=== PATIENT | male | born 1985 ===

== ENCOUNTER 2016-10-04 23:53 | Emergency (ER) | payer SELFPAY ==
[2016-10-05 00:21] VITALS: BP 130/76; PULSE 64; RESP 18; TEMP 98.3; O2SAT 99
--- NOTE | 2016-10-05 00:29 | ED PDOC ---
HPI: Back Time Seen by Provider: 10/05/16 00:28 Chief Complaint (Nursing): Back Pain Chief Complaint (Provider): back pain History Per: Patient Additional Complaint(s): 31-year-old male with no past medical history presents to emergency Department with pain to lower back that started 2 days ago. Patient denies injury or trauma. No fever or chills. No dysuria or hematuria. No medication taken for pain relief. 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 Past Medical History Reviewed: Historical Data, Nursing Documentation, Vital Signs Vital Signs: Last Vital Signs Temp 98.3 F 10/05/16 00:19 Pulse 64 10/05/16 00:19 Resp 18 10/05/16 00:19 BP 130/76 10/05/16 00:19 Pulse Ox 99 10/05/16 00:19 - Medical History PMH: No Chronic Diseases - Surgical History Surgical History: No Surg Hx - Family History Family History: States: No Known Family Hx - Living Arrangements Living Arrangements: With Family - Social History Current smoker - smoking cessation education provided: No Alcohol: None Drugs: Denies - Home Medications Home Medications: Ambulatory Orders Medication Instructions Recorded Cyclobenzaprine [Cyclobenzaprine 10 mg PO TID PRN #15 tab 10/05/16 HCl] Ibuprofen [Motrin] 600 mg PO Q6 PRN #15 tab 10/05/16 - Allergies Allergies/Adverse Reactions: Allergies Allergy/AdvReac Type Severity Reaction Status Date / Time No Known Allergies Allergy Verified 10/05/16 00:19 Review of Systems ROS Statement: Except As Marked, All Systems Reviewed And Found Negative Constitutional: Negative for: Fever Cardiovascular: Negative for: Chest Pain Respiratory: Negative for: Cough Gastrointestinal: Negative for: Nausea, Vomiting, Abdominal Pain Genitourinary Male: Negative for: Dysuria, Frequency, Incontinence, Hematuria Musculoskeletal: Positive for: Back Pain Neurological: Negative for: Weakness, Numbness, Incoordination, Change in Speech , Altered Mental Status, Headache, Dizziness Physical Exam - Reviewed Nursing Documentation Reviewed: Yes Vital Signs Reviewed: Yes - Physical Exam Appears: Positive for: Well, Non-toxic, No Acute Distress Skin: Negative for: Rash Eye Exam: Positive for: Normal appearance, EOMI, PERRL Cardiovascular/Chest: Positive for: Regular Rate, Rhythm Respiratory: Positive for: Normal Breath Sounds. Negative for: Respiratory Distress Gastrointestinal/Abdominal: Positive for: Normal Exam, Soft. Negative for: Tenderness Back: Positive for: L CVA Tenderness, R CVA Tenderness, Vertebral Tenderness ( lumbar region), Other (negative bilateral straight leg raise) Extremity: Positive for: Normal ROM. Negative for: Pedal Edema Neurologic/Psych: Positive for: Alert, Oriented - Laboratory Results Result Diagrams: 10/05/16 01:54 10/05/16 01:54 Urine dip results: Positive for: Blood (moderate). Negative for: Leukocyte Esterase, Nitrate, Ketones, Glucose, Bilirubin, Protein - ECG O2 Sat by Pulse Oximetry: 99 Pulse Ox Interpretation: Normal - Other Rad CT abd and pelvis without contrast X-Ray: Read By Radiologist X-Ray Interpretation: no acute finding, see below Medical Decision Making Medical Decision Makin31 year old with back pain Urine dip shows moderate blood, will order CT to rule out renal pathology Plan: CBC CMP IVF IV toradol CT abd and pelvis without contrast CT: IMPRESSION: - No evidence of significant acute process on this unenhanced exam. There is no evidence of nephrolithiasis or obstructive uropathy. - An abnormal, bandlike area of soft tissue is seen in the right ischiorectal fossa laterally, which appears to connect with the edwige of the penis on the right. This is of uncertain etiology, but could represent some type of congenital anomaly. It does not have a CT appearance to suggest an abscess or other acute inflammatory process. Recommend clinical correlation. Nonemergent pelvic MRI may be helpful for further evaluation. Patient states pain is resolved after toradol was given. He states he feels much better. CT is negative for acute finding. Patient aware of incidental finding. All questions answered. Will d/c with rx motrin and flexeril. Patient was referred to clinic for follow up. Disposition - Clinical Impression Clinical Impression: Back strain - Patient ED Disposition Is Patient to be Admitted: No Counseled Patient/Family Regarding: Studies Performed, Diagnosis, Need For Followup, Rx Given - Disposition Referrals: [facility] [Outside] Disposition: Routine/Home Disposition Time: 04:21 Condition: STABLE Additional Instructions: Take rx meds as directed as needed for pain. Avoid heavy lifting. Follow up in 2-3 days with clinic. Prescriptions: Cyclobenzaprine [Cyclobenzaprine HCl] 10 mg PO TID PRN #15 tab PRN Reason: Muscle Pain Ibuprofen [Motrin] 600 mg PO Q6 PRN #15 tab PRN Reason: Pain, Moderate (4-7) Instructions: Back Pain (ED), Muscle Strain (ED) Print Language: BRUNEIAN Results - Lab Results Lab Results: 10/05/16 10/05/16 10/05/16 01:54 01:54 01:54 WBC 8.6 RBC 4.82 Hgb 13.9 Hct 40.5 MCV 84.2 MCH 28.9 MCHC 34.3 RDW 12.7 Plt Count 283 MPV 8.0 Neut % (Auto) 52.5 Lymph % (Auto) 33.7 [place] % (Auto) 9.4 Eos % (Auto) 3.5 Baso % (Auto) 0.9 Neut # 4.5 Lymph # 2.9 [place] # 0.8 Eos # 0.3 Baso # 0.1 Sodium 139 Potassium 3.6 Chloride 103 Carbon Dioxide 28 Anion Gap 12 BUN 17 Creatinine 0.8 Est GFR ( Amer) > 60 Est GFR (Non-Af Amer) > 60 Random Glucose 108 Calcium 9.4 Total Bilirubin 0.3 AST 35 ALT 31 Alkaline Phosphatase 77 Total Protein 7.2 Albumin 4.5 Globulin 2.7 Albumin/Globulin Ratio 1.6 Urine Color Yellow Urine Clarity Clear Urine pH 5.0 Ur Specific [place] 1.033 H Urine Protein Negative Urine Glucose (UA) Neg Urine Ketones Negative Urine Blood Negative Urine Nitrate Negative Urine Bilirubin Negative Urine Urobilinogen 0.2-1.0 Ur Leukocyte Esterase Trace Urine RBC (Auto) 5 H Urine Microscopic WBC 7 H
[2016-10-05] MEDS ORDERED: Sodium Chloride 0.9% 1,000 ML IV STA (01:41)
[2016-10-05 02:01] LABS: BASO # 0.1 K/uL (0.0-0.2); BASO % 0.9 % (0.0-2.0); EOS # 0.3 K/uL (0.0-0.7); EOS % 3.5 % (0.0-4.0); HEMATOCRIT 40.5 % (35.0-51.0); LYMPH # 2.9 K/uL (1.0-4.3); LYMPH % 33.7 % (20.0-40.0); MEAN CELL VOLUME 84.2 fl (80.0-94.0); MEAN CORPUSCULAR HEMOGLOBIN 28.9 pg (27.0-31.0); MEAN CORPUSCULAR HGB CONC 34.3 g/dL (33.0-37.0); MONO # 0.8 K/uL (0.0-0.8); MONO % 9.4 % (0.0-10.0); NEUT # 4.5 K/uL (1.8-7.0); NEUT % 52.5 % (50.0-75.0); RED CELL DISTRIBUTION WIDTH 12.7 % (11.5-14.5); WHITE BLOOD COUNT 8.6 K/uL (4.8-10.8)
[2016-10-05 02:05] LABS: RBC URINE 5 /hpf (0-3); URINE BILIRUBIN NEGATIVE (NEGATIVE); URINE BLOOD NEGATIVE (NEGATIVE); URINE COLOR YELLOW (YELLOW); URINE GLUCOSE (UA) NEG (Normal); URINE KETONE NEGATIVE (NEGATIVE); URINE LEUKOCYTE ESTERASE TRACE Leu/uL (Negative); URINE PROTEIN NEGATIVE (NEGATIVE); URINE UROBILINOGEN 0.2-1.0 mg/dL (0.2-1.0); WBC URINE 7 /hpf (0-5)
[2016-10-05 02:12] LABS: ALB/GLOB RATIO 1.6 (1.0-2.1); ALKALINE PHOSPHATASE 77 U/L (38-126); ALT/SGPT 31 U/L (21-72); AST/SGOT 35 U/L (17-59); BILIRUBIN,TOTAL 0.3 mg/dl (0.2-1.3); BLOOD UREA NITROGEN 17 mg/dl (9-20); CALCIUM 9.4 mg/dL (8.4-10.2); CARBON DIOXIDE 28 mmol/L (22-30); CHLORIDE 103 mmol/L (98-107); GFR AFRICAN-AMERICAN > 60; GLUCOSE,RANDOM 108 mg/dL (75-110); POTASSIUM 3.6 MMOL/L (3.6-5.0); SODIUM 139 mmol/l (132-148); TOTAL PROTEIN 7.2 G/DL (6.3-8.2)
--- NOTE | 2016-10-05 04:00 | CT ---
EXAM: CT Abdomen and Pelvis Without Intravenous Contrast CLINICAL HISTORY: 31 years old, male; Pain; Abdominal pain; Other: Back and hematuria; Additional info: Back pain, hematuria TECHNIQUE: Axial computed tomography images of the abdomen and pelvis without intravenous contrast. This CT exam was performed using one or more of the following dose reduction techniques: automated exposure control, adjustment of the mA and/or kV according to patient size, and/or use of iterative reconstruction technique. Coronal and sagittal reformatted images were created and reviewed. EXAM DATE/TIME: 10/05/2016 2:09 AM COMPARISON: No relevant prior studies available. FINDINGS: LIMITATIONS: Exam is somewhat limited by mild streak/motion artifact. LOWER THORAX: No infiltrate seen in the lung bases. ABDOMEN: LIVER: No acute abnormality of the liver identified. GALLBLADDER AND BILE DUCTS: No CT evidence of acute cholecystitis. No evidence of significant biliary ductal dilatation. PANCREAS: No CT evidence of acute pancreatitis. SPLEEN: No acute abnormality of the spleen identified. ADRENALS: No acute abnormality of the adrenal glands identified. KIDNEYS AND URETERS: No acute abnormality of the kidneys seen. No renal stones, hydronephrosis, or hydroureter seen. STOMACH AND BOWEL: No acute abnormality of the stomach or duodenum identified. No evidence of small bowel obstruction. No acute abnormality of the colon identified. APPENDIX: Appendix is seen, and is within normal limits in appearance. PELVIS: BLADDER: No acute abnormality of the bladder identified. REPRODUCTIVE: See below. ABDOMEN and PELVIS: INTRAPERITONEAL SPACE: No evidence of free intraperitoneal air or fluid. BONES/JOINTS: No acute fractures or other acute bony abnormality noted. SOFT TISSUES: Best seen on images 55-77 of series 601, there is a bandlike area of soft tissue in the ischiorectal fossa on the right which appears to connect to the right edwige of the penis. This is of uncertain etiology. There is no adjacent inflammation or associated gas. VASCULATURE: No evidence of abdominal aortic aneurysm. No evidence of periaortic hemorrhage. LYMPH NODES: No evidence of diffuse lymphadenopathy. IMPRESSION: - No evidence of significant acute process on this unenhanced exam. There is no evidence of nephrolithiasis or obstructive uropathy. - An abnormal, bandlike area of soft tissue is seen in the right ischiorectal fossa laterally, which appears to connect with the edwige of the penis on the right. This is of uncertain etiology, but could represent some type of congenital anomaly. It does not have a CT appearance to suggest an abscess or other acute inflammatory process. Recommend clinical correlation. Nonemergent pelvic MRI may be helpful for further evaluation. - See above for remaining findings.
== END 2016-10-05 05:01 | disposition home or self-care (01) ==
LOC: H.ER 23:53
DX: M54.9 Dorsalgia, unspecified (principal); R31.9 Hematuria, unspecified
CPT/HCPCS: 74176; 80053; 81003; 85025; 87086; 96360; 99282; J1885; J7040

== ENCOUNTER 2017-10-26 23:26 | Observation (INO) | payer SELFPAY ==
--- NOTE | 2017-10-27 00:05 | ED PDOC ---
HPI: Headache Time Seen by Provider: 10/27/17 00:04 Chief Complaint (Nursing): Headache Chief Complaint (Provider): HEADACHE History Per: Patient (32 Y/O MALE HERE WITH HEADACHE NOTED YESTERDAY AND TODAY. PATIENT NOTES NOSEBLEED TODAY AND IS CONCERNED.) Past Medical History Reviewed: Historical Data, Nursing Documentation, Vital Signs Vital Signs: Last Vital Signs Temp 99.0 F 10/26/17 23:35 Pulse 88 10/26/17 23:35 Resp 16 10/26/17 23:35 BP 145/88 10/26/17 23:35 Pulse Ox 99 10/26/17 23:35 - Family History Family History: States: No Known Family Hx - Home Medications Home Medications: Ambulatory Orders Medication Instructions Recorded Cyclobenzaprine [Cyclobenzaprine 10 mg PO TID PRN #15 tab 10/05/16 HCl] Ibuprofen [Motrin] 600 mg PO Q6 PRN #15 tab 10/05/16 - Allergies Allergies/Adverse Reactions: Allergies Allergy/AdvReac Type Severity Reaction Status Date / Time No Known Allergies Allergy Verified 10/05/16 00:19 Review of Systems ROS Statement: Except As Marked, All Systems Reviewed And Found Negative Physical Exam - Reviewed Nursing Documentation Reviewed: Yes Vital Signs Reviewed: Yes - Physical Exam Appears: Positive for: Well, Non-toxic, No Acute Distress Head Exam: Positive for: ATRAUMATIC, NORMAL INSPECTION, NORMOCEPHALIC Skin: Positive for: Normal Color, Warm, DRY Eye Exam: Positive for: EOMI, Normal appearance, PERRL ENT: Positive for: Normal ENT Inspection Neck: Positive for: Normal, Painless ROM Cardiovascular/Chest: Positive for: Regular Rate, Rhythm Respiratory: Positive for: CNT, Normal Breath Sounds Gastrointestinal/Abdominal: Positive for: Normal Exam, Soft Back: Positive for: Normal Inspection Extremity: Positive for: Normal ROM Neurologic/Psych: Positive for: Alert, Oriented - Laboratory Results Result Diagrams: 10/27/17 00:52 10/27/17 00:52 - ECG O2 Sat by Pulse Oximetry: 99 - Progress ED Course And Treament: D/W [facility] RADIOLOGIST ABNORMAL CT FINDINGS: IMPRESSION: - 5 mm round hyperdense lesion in the right occipital lobe. In a patient of this age, this could be secondary to a vascular malformation, such as cavernous malformation or developmental venous anomaly. A tiny focus of acute hemorrhage is not excluded. MRI of the brain would be helpful for further evaluation. - See above for remaining findings. Dictated By: Merlyn Samson MD Dictated Date/Time: 10/27/1724 Signed By: Merlyn Samson MD Date Signed: 24 Transcribed By: LASHONDA Transcribe Date/Time : 10/27/1724 d/w Dr. Valenzuela at 00:40. No immediate intervention recommended. d/w Dr. Alvares. Will admit for MRI in am. Disposition - Clinical Impression Clinical Impression: Abnormal finding on CT scan - Patient ED Disposition Is Patient to be Admitted: Yes - Disposition Disposition Time: 01:09 Condition: FAIR - Pt Status Changed To: Hospital Disposition Of: Observation
--- NOTE | 2017-10-27 00:26 | CT ---
EXAM: CT Head Without Intravenous Contrast EXAM DATE/TIME: 10/26/2017 11:49 PM CLINICAL HISTORY: 32 years old, male; Pain; Headache TECHNIQUE: Axial computed tomography images of the head/brain without intravenous contrast. All CT scans at this facility use one or more dose reduction techniques, viz.: automated exposure control; ma/kV adjustment per patient size (including targeted exams where dose is matched to indication; i.e. head); or iterative reconstruction technique. Coronal and sagittal reformatted images were created and reviewed. COMPARISON: No relevant prior studies available. FINDINGS: BRAIN: Best seen on image 35 of series 602, there is a small 5 x 5 mm round focus of hyperdensity in the right occipital lobe, centered at the corticomedullary junction, which has a CT attenuation of 60 Hounsfield units. Otherwise, no evidence of a significant acute intracranial process. No evidence of diffuse intracranial lesions by CT. No acute extra-axial fluid collections visualized. No evidence of significant mass effect within the brain. VENTRICLES: No evidence of significant hydrocephalus. BONES/JOINTS: No acute fractures or other acute bony abnormality noted. SOFT TISSUES: No acute abnormality of the visualized soft tissues is seen. SINUSES: Visualized paranasal sinuses appear clear. MASTOID AIR CELLS: Mastoid air cells appear clear. IMPRESSION: - 5 mm round hyperdense lesion in the right occipital lobe. In a patient of this age, this could be secondary to a vascular malformation, such as cavernous malformation or developmental venous anomaly. A tiny focus of acute hemorrhage is not excluded. MRI of the brain would be helpful for further evaluation. - See above for remaining findings.
[2017-10-27 01:12] LABS: BASO % 0.3 % (0.0-2.0); EOS # 0.1 K/uL (0.0-0.7); EOS % 1.2 % (0.0-4.0); HEMOGLOBIN 14.3 g/dL (12.0-18.0); LYMPH # 1.6 K/uL (1.0-4.3); LYMPH % 13.4 % (20.0-40.0); MEAN CELL VOLUME 84.6 fl (80.0-94.0); MEAN CORPUSCULAR HEMOGLOBIN 28.3 pg (27.0-31.0); MEAN CORPUSCULAR HGB CONC 33.5 g/dL (33.0-37.0); MEAN PLATELET VOLUME 7.4 fl (7.2-11.7); MONO # 1.2 K/uL (0.0-0.8); MONO % 9.8 % (0.0-10.0); NEUT # 9.2 K/uL (1.8-7.0); NEUT % 75.3 % (50.0-75.0); RBC 5.05 Mil/uL (4.40-5.90); RED CELL DISTRIBUTION WIDTH 12.8 % (11.5-14.5); WHITE BLOOD COUNT 12.2 K/uL (4.8-10.8)
[2017-10-27 01:15] LABS: ALB/GLOB RATIO 1.2 (1.0-2.1); ALT/SGPT 48 U/L (21-72); AST/SGOT 38 U/L (17-59); BLOOD UREA NITROGEN 11 mg/dl (9-20); GFR AFRICAN-AMERICAN > 60; GFR NON-AFRICAN AMERICAN > 60
[2017-10-27 01:23] LABS: PARTIAL THROMBOPLASTIN TIME 30.5 Seconds (25.6-37.1); PROTHROMBIN TIME 10.5 Seconds (9.8-13.1)
--- NOTE | 2017-10-27 02:08 | CP.PCM.HP ---
History of Present Illness - History of Present Illness History of Present Illness: PMD: none Chief complaint: Headache The patient was seen and examined in the ED HPI: 32 years old male with no significant past medicl Hx, comes with 2 days of a continued Occipital headache that is continuous. No hx of Trauma, Nausea nor vomits. He did have nose bleed twice during the period of the headache. No chest pain nor SOB. He refers no nausea, vomits, diarrhea nor constipation. No problem with the Vision. 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 absent: Anorexia, Chills - EENT Eyes: absent: Blind Spots, Diplopia, Itchy Eyes, Requires Corrective Lenses, Sees Flashes Ears: absent: Decreased Hearing, Ear Discharge, Tinnitus Nose/Mouth/Throat: Epistaxis, Nasal Congestion - Cardiovascular Cardiovascular: absent: Chest Pain, Dyspnea, Edema - Respiratory Respiratory: Cough, Excessive Mucous Production. absent: Dyspnea, Chest Congestion - Gastrointestinal Gastrointestinal: absent: Constipation, Diarrhea, Nausea, Vomiting - Genitourinary Genitourinary: absent: Dysuria, Flank Pain, Hematuria - Musculoskeletal Musculoskeletal: absent: Arthralgias, Loss of Height, Muscle Cramps, Myalgias, Neck Pain - Integumentary Integumentary: absent: Pruritus, Rash, Skin Ulcer, Sores, Striae, Swelling - Neurological Neurological: Headaches. absent: Confusion, Dizziness - Psychiatric Psychiatric: absent: Anxiety, Depression, Hopelessness, Paranoia - Endocrine Endocrine: absent: Palpitations, Polydipsia, Polyphagia, Polyuria - Hematologic/Lymphatic Hematologic: absent: Easy Bleeding, Easy Bruising Past Patient History - Past Medical History & Family History Past Medical History?: No - Past Social History Smoking Status: Never Smoked Chewing Tobacco Use: No Cigar Use: No Alcohol: Occasional Home Situation {Lives}: With Family - CARDIAC Hx Cardiac Disorders: No - PULMONARY Hx Respiratory Disorders: No - NEUROLOGICAL Hx Neurological Disorder: No - HEENT Hx HEENT Problems: No - RENAL Hx Chronic Kidney Disease: No Hx Kidney Stones: No - ENDOCRINE/METABOLIC Hx Endocrine Disorders: No - HEMATOLOGICAL/ONCOLOGICAL Hx Blood Disorders: No - INTEGUMENTARY Hx Dermatological Problems: No - MUSCULOSKELETAL/RHEUMATOLOGICAL Hx Musculoskeletal Disorders: No - GASTROINTESTINAL Hx Gastrointestinal Disorders: No - PSYCHIATRIC Hx Substance Use: No - SURGICAL HISTORY Hx Surgeries: No - ANESTHESIA Hx Anesthesia: No Meds Allergies/Adverse Reactions: Allergies Allergy/AdvReac Type Severity Reaction Status Date / Time No Known Allergies Allergy Verified 10/27/17 02:28 Physical Exam - Constitutional Appears: No Acute Distress - Head Exam Head Exam: ATRAUMATIC, NORMAL INSPECTION, NORMOCEPHALIC - Eye Exam Eye Exam: EOMI, Normal appearance Pupil Exam: NORMAL ACCOMODATION, PERRL - ENT Exam ENT Exam: Mucous Membranes Moist, Normal Exam, Normal External Ear Exam - Neck Exam Neck exam: Positive for: Full Rom, Normal Inspection. Negative for: Lymphadenopathy, Tenderness - Respiratory Exam Respiratory Exam: Clear to Auscultation Bilateral. absent: Rales, Rhonchi, Wheezes - Cardiovascular Exam Cardiovascular Exam: Gallop, REGULAR RHYTHM, RRR, +S1, +S2. absent: JVD - GI/Abdominal Exam GI & Abdominal Exam: Normal Bowel Sounds, Soft. absent: Organomegaly, Tenderness - Rectal Exam Rectal Exam: Deferred - Extremities Exam Extremities exam: Positive for: full ROM, normal inspection. Negative for: pedal edema, tenderness - Back Exam Back exam: NORMAL INSPECTION. absent: CVA tenderness (L), CVA tenderness (R) - Neurological Exam Neurological exam: Alert, CN II-XII Intact, Oriented x3, Reflexes Normal - Psychiatric Exam Psychiatric exam: Normal Affect, Normal Mood - Skin Skin Exam: Dry, Intact, Normal Color, Warm Results - Vital Signs Recent Vital Signs: Last Vital Signs Temp 99.0 F 10/26/17 23:35 Pulse 88 10/26/17 23:35 Resp 16 10/26/17 23:35 BP 145/88 10/26/17 23:35 Pulse Ox 99 10/27/17 00:36 - Labs Result Diagrams: 10/27/17 00:52 10/27/17 00:52 Labs: Laboratory Results - last 24 hr 10/27/17 10/27/17 10/27/17 00:52 00:52 00:52 WBC 12.2 H RBC 5.05 Hgb 14.3 Hct 42.7 MCV 84.6 MCH 28.3 MCHC 33.5 RDW 12.8 Plt Count 319 MPV 7.4 Neut % (Auto) 75.3 H Lymph % (Auto) 13.4 L [place] % (Auto) 9.8 Eos % (Auto) 1.2 Baso % (Auto) 0.3 Neut # (Auto) 9.2 H Lymph # (Auto) 1.6 [place] # (Auto) 1.2 H Eos # (Auto) 0.1 Baso # (Auto) 0.0 PT 10.5 INR 1.0 APTT 30.5 Sodium 139 Potassium 4.4 Chloride 102 Carbon Dioxide 27 Anion Gap 14 BUN 11 Creatinine 0.8 Est GFR ( Amer) > 60 Est GFR (Non-Af Amer) > 60 Random Glucose 110 Calcium 9.0 Total Bilirubin 0.6 AST 38 ALT 48 Alkaline Phosphatase 114 Total Protein 7.3 Albumin 4.0 Globulin 3.2 Albumin/Globulin Ratio 1.2 Blood Type Antibody Screen BBK History Checked 10/27/17 00:52 WBC RBC Hgb Hct MCV MCH MCHC RDW Plt Count MPV Neut % (Auto) Lymph % (Auto) [place] % (Auto) Eos % (Auto) Baso % (Auto) Neut # (Auto) Lymph # (Auto) [place] # (Auto) Eos # (Auto) Baso # (Auto) PT INR APTT Sodium Potassium Chloride Carbon Dioxide Anion Gap BUN Creatinine Est GFR ( Amer) Est GFR (Non-Af Amer) Random Glucose Calcium Total Bilirubin AST ALT Alkaline Phosphatase Total Protein Albumin Globulin Albumin/Globulin Ratio Blood Type O POSITIVE Antibody Screen Negative BBK History Checked No verified bt - Imaging and Cardiology CT scan - head Status: Image reviewed by me Additional comment: Initial Report created on 10/27/2017 12:25 AM Eastern Time ([place] & [place]) EXAM: CT Head Without Intravenous Contrast FINDINGS: BRAIN: Best seen on image 35 of series 602, there is a small 5 x 5 mm round focus of hyperdensity in the right occipital lobe, centered at the corticomedullary junction, which has a CT attenuation of 60 Hounsfield units. Otherwise, no evidence of a significant acute intracranial process. No evidence of diffuse intracranial lesions by CT. No acute extra-axial fluid collections visualized. No evidence of significant mass effect within the brain. VENTRICLES: No evidence of significant hydrocephalus. BONES/JOINTS: No acute fractures or other acute bony abnormality noted. SOFT TISSUES: No acute abnormality of the visualized soft tissues is seen. SINUSES: Visualized paranasal sinuses appear clear. MASTOID AIR CELLS: Mastoid air cells appear clear. IMPRESSION: - 5 mm round hyperdense lesion in the right occipital lobe. In a patient of this age, this could be secondary to a vascular malformation, such as cavernous malformation or developmental venous anomaly. A tiny focus of acute hemorrhage is not excluded. MRI of the brain would be helpful for further evaluation. - See above for remaining findings. Assessment & Plan - Assessment and Plan (Free Text) Assessment: #. Headache #. Abnormal Head CT #. Leukocytois Plan: 32 years old male with no significant past medial Hx, comes with 2 days of a continued Occipital headache that is continuous. No hx of Trauma, Nausea nor vomits. He did have nose bleed twice during the period of the headache. No chest pain nor SOB. He refers no nausea, vomits, diarrhea nor constipation. No problem with the Vision. #. Headache at Occipital region could be related to poor vision. CT of head with Questionable 5mm round hyperdense lesion at right Occipital lobe. -Observe in Telemetry - Neuro checks -Tylenol for Pain #. Abnormal Head CT - Dr Leno consulted and requested the MRI - MRI with and without contrast. If negative patient may be discharged with pain management #. Reactive Leukocytois - follow WBC #. Epistaxis Stable #. DVT prophylaxis with SCD #. Code Status: Full - Date & Time Date: 10/27/17 Time: 02:08
[2017-10-27 05:57] LABS: HEMOGLOBIN 14.4 g/dL (12.0-18.0); MEAN CELL VOLUME 85.4 fl (80.0-94.0); MEAN CORPUSCULAR HEMOGLOBIN 28.4 pg (27.0-31.0); MEAN CORPUSCULAR HGB CONC 33.2 g/dL (33.0-37.0); RBC 5.06 Mil/uL (4.40-5.90); RED CELL DISTRIBUTION WIDTH 13.1 % (11.5-14.5); WHITE BLOOD COUNT 13.9 K/uL (4.8-10.8)
[2017-10-27 08:03] VITALS: RESP 20
[2017-10-27] MEDS ORDERED: Gadodiamide 287 MG/ML VIAL (15ML) IV ONE (10:02)
--- NOTE | 2017-10-27 11:43 | MRI ---
PROCEDURE: MRI BRAIN WITH AND WITHOUT CONTRAST HISTORY: Abnormal CT head COMPARISON: Noncontrast head CT 10/26/2017. TECHNIQUE: Multiplanar, multisequence MR images of the brain were obtained with (Omniscan 15 cc) and without intravenous contrast enhancement. FINDINGS: HEMORRHAGE: None DWI: No evidence of an acute or early subacute infarction. BRAIN PARENCHYMA: Corresponding to the tiny area of hyper density at the medial right occipital lobe in CT 10/26/2017, is in area of diminished long TR and echo planar signal, isointense on T1 weighted imaging. It is not visualized on T1 weighted imaging and is therefore neutral in signal intensity on T1 weighting. Following gadolinium administration, there is no abnormal intracranial enhancement appreciated throughout the examination. Given that echo planar imaging is sensitive to this finding and it is dark on T2 weighted imaging, this probably or represents a small granuloma or other calcification. It is not felt to represent hemosiderin and as it is a minimal finding on the gradient echo axial series as compared to the echo planar series. Trace hemosiderin is still a possibility and in a small cavernoma. Remaining signal intensity throughout the de la cruz and white matter anatomy above and below the tentorium including the brainstem is normal. There is no mass effect or parenchymal edema appreciated. Sulci and cisterns appear normal in overall volume and there is no suspicious extra-axial fluid collection. The midline brain anatomy is within normal limits. ENHANCEMENT: No abnormal intracranial enhancement. VENTRICLES: Unremarkable. No hydrocephalus. CRANIUM: Unremarkable. ORBITS: Grossly unremarkable. PARANASAL SINUSES/MASTOIDS: A left maxillary sinus retention cyst is identified. VASCULAR SYSTEM: Skull base flow voids intact. OTHER FINDINGS: None . IMPRESSION: 1. Medial right occipital lobe lesion likely represents a small granuloma or cavernoma. No abnormal intracranial enhancement is identified. Please see discussion above. 2. Remainder the brain appears within normal limits. 3. Incidental small left maxillary sinus retention cyst.
[2017-10-27 12:03] VITALS: BP 122/82; PULSE 89; TEMP 98.2; O2SAT 96
--- NOTE | 2017-10-27 14:39 | CP.PCM.DIS ---
Provider - Provider Date of Admission: 10/27/17 01:09 Attending physician: Tony Alvares Consults: Neurosurgery: DR Valenzuela Time Spent in preparation of Discharge (in minutes): 30 Diagnosis - Discharge Diagnosis (1) Abnormal finding on CT scan Status: Acute (2) Headache Status: Acute Hospital Course - Lab Results Lab Results: Most Recent Lab Values WBC 13.9 K/uL (4.8-10.8) H 10/27/17 04:20 RBC 5.06 Mil/uL (4.40-5.90) 10/27/17 04:20 Hgb 14.4 g/dL (12.0-18.0) 10/27/17 04:20 Hct 43.2 % (35.0-51.0) 10/27/17 04:20 MCV 85.4 fl (80.0-94.0) 10/27/17 04:20 MCH 28.4 pg (27.0-31.0) 10/27/17 04:20 MCHC 33.2 g/dL (33.0-37.0) 10/27/17 04:20 RDW 13.1 % (11.5-14.5) 10/27/17 04:20 Plt Count 323 K/uL (130-400) 10/27/17 04:20 MPV 7.4 fl (7.2-11.7) 10/27/17 00:52 Neut % (Auto) 75.3 % (50.0-75.0) H 10/27/17 00:52 Lymph % (Auto) 13.4 % (20.0-40.0) L 10/27/17 00:52 Schuyler % (Auto) 9.8 % (0.0-10.0) 10/27/17 00:52 Eos % (Auto) 1.2 % (0.0-4.0) 10/27/17 00:52 Baso % (Auto) 0.3 % (0.0-2.0) 10/27/17 00:52 Neut # (Auto) 9.2 K/uL (1.8-7.0) H 10/27/17 00:52 Lymph # (Auto) 1.6 K/uL (1.0-4.3) 10/27/17 00:52 Schuyler # (Auto) 1.2 K/uL (0.0-0.8) H 10/27/17 00:52 Eos # (Auto) 0.1 K/uL (0.0-0.7) 10/27/17 00:52 Baso # (Auto) 0.0 K/uL (0.0-0.2) 10/27/17 00:52 PT 10.5 Seconds (9.8-13.1) 10/27/17 00:52 INR 1.0 (0.9-1.2) 10/27/17 00:52 APTT 30.5 Seconds (25.6-37.1) 10/27/17 00:52 Sodium 139 mmol/l (132-148) 10/27/17 00:52 Potassium 4.4 MMOL/L (3.6-5.0) 10/27/17 00:52 Chloride 102 mmol/L (98-107) 10/27/17 00:52 Carbon Dioxide 27 mmol/L (22-30) 10/27/17 00:52 Anion Gap 14 (10-20) 10/27/17 00:52 BUN 11 mg/dl (9-20) 10/27/17 00:52 Creatinine 0.8 mg/dl (0.8-1.5) 10/27/17 00:52 Est GFR ( Amer) > 60 10/27/17 00:52 Est GFR (Non-Af Amer) > 60 10/27/17 00:52 Random Glucose 110 mg/dL (75-110) 10/27/17 00:52 Calcium 9.0 mg/dL (8.4-10.2) 10/27/17 00:52 Total Bilirubin 0.6 mg/dl (0.2-1.3) 10/27/17 00:52 AST 38 U/L (17-59) 10/27/17 00:52 ALT 48 U/L (21-72) 10/27/17 00:52 Alkaline Phosphatase 114 U/L (38-126) 10/27/17 00:52 Total Protein 7.3 G/DL (6.3-8.2) 10/27/17 00:52 Albumin 4.0 g/dL (3.5-5.0) 10/27/17 00:52 Globulin 3.2 gm/dL (2.2-3.9) 10/27/17 00:52 Albumin/Globulin Ratio 1.2 (1.0-2.1) 10/27/17 00:52 Blood Type O POSITIVE 10/27/17 00:52 Antibody Screen Negative 10/27/17 00:52 BBK History Checked No verified bt 10/27/17 00:52 - Hospital Course Hospital Course: 32 years old male with no significant past medial Hx, comes with 2 days of a continued Occipital headache that is continuous. No hx of Trauma, Nausea nor vomits. He did have nose bleed twice during the period of the headache however this resolved. No chest pain nor SOB. He refers no nausea, vomits, diarrhea nor constipation. No problem with the Vision. No neurologic deficit. CT of the Head: - 5 mm round hyperdense lesion in the right occipital lobe. In a patient of this age, this could be secondary to a vascular malformation, such as cavernous malformation or developmental venous anomaly. A tiny focus of acute hemorrhage is not excluded. MRI of the brain would be helpful for further evaluation. MRI Brain : Medial Right Occipital lobe lesion likely a small granuloma or Cavernoma. #. Headache . -Observed in Telemetry - Neuro checks - no abnormal - no signs of increase ICP - no focal neuro deficit -Tylenol for Pain -Headache resolved - advised pt to return if sxs recurs or if with fever , neuro deficit #. Abnormal Head CT - Dr Leon consulted and requested the MRI - MRI with and without contrast: prob Granuloma or Cavernoma - discussed case with Dr Valenzuela - including MRI result - cleared pt for discharge home #. Reactive Leukocytis - pt has no fever, no signs of infection #. Epistaxis resolved #. DVT prophylaxis with SCD Discharge Exam - Head Exam Head Exam: ATRAUMATIC, NORMAL INSPECTION, NORMOCEPHALIC - Eye Exam Eye Exam: EOMI, Normal appearance, PERRL Pupil Exam: NORMAL ACCOMODATION - ENT Exam ENT Exam: Mucous Membranes Moist, Normal External Ear Exam - Neck Exam Neck exam: Full Rom Additional comments: no nuchal rigidity - Respiratory Exam Respiratory Exam: NORMAL BREATHING PATTERN. absent: Rales, Wheezes, Respiratory Distress - Cardiovascular Exam Cardiovascular Exam: REGULAR RHYTHM, +S1, +S2 - GI/Abdominal Exam GI & Abdominal Exam: Normal Bowel Sounds, Soft. absent: Tenderness - Extremities Exam Extremities exam: full ROM, normal capillary refill, pedal pulses present - Back Exam Back exam: FULL ROM. absent: CVA tenderness (L), CVA tenderness (R) - Neurological Exam Neurological exam: Alert, CN II-XII Intact, Normal Gait, Oriented x3, Reflexes Normal - Psychiatric Exam Psychiatric exam: Normal Affect, Normal Mood - Skin Skin Exam: Dry, Normal Color, Warm Discharge Plan - Discharge Medications Prescriptions: Acetaminophen [Tylenol 325mg tab] 650 mg PO TID PRN #1 tab PRN Reason: Headache - Follow Up Plan Condition: IMPROVED Disposition: HOME/ ROUTINE Instructions: Headache, Adult (DC) Additional Instructions: hacer courtney en la clinica en vani semana Referrals: [facility] [place] [Outside]
--- NOTE | 2017-10-28 09:31 | CARD ---
APPROVED REPORT EKG Measurement Heart [id number] <Conclusion> Normal sinus rhythm Incomplete right bundle branch block Borderline ECG
== END 2017-10-27 15:30 | disposition home or self-care (01) ==
LOC: H.ER 23:26 → H.ERHOLD 10-27 01:09 → H.TEL 10-27 03:06
PROVIDERS: ADMIT Internal Medicine; ATTEND Internal Medicine
DX: R93.0 Abnormal findings on diagnostic imaging of skull and head, not elsewhere classified (principal); R51 Headache; R04.0 Epistaxis; D72.828 Other elevated white blood cell count
CPT/HCPCS: 70450; 70553; 80053; 85025; 85027; 85610; 85730; 86850; 86900; 93005; 99285; A9579; G0378